=== PATIENT | female | born 1965 ===

== ENCOUNTER 2017-01-12 07:03 | Day surgery (SDC) | payer BC ==
--- NOTE | 2017-01-12 09:25 | CP.SDSHP ---
Same Day Surgery H & P - History Proposed Procedure: colonoscopy Pre-Op Diagnosis: screening for colon cancer - Previous Medical/Surgical History Comments: depression/anxiety - Current Medications Current Medications: see med list - Physical Exam Vital Signs: Vital Signs 01/12/17 08:36 Temperature 97.1 F L Pulse Rate 85 Respiratory 20 Rate Blood Pressure 147/88 O2 Sat by Pulse 99 Oximetry Mental Status: Alert & Oriented x3 Heart: WNL Lungs: WNL GI: WNL - {Optional Preform as Required} Abdomen: WNL - Impression Impression: 51 year old female here for index screening colonoscopy Pt. Evaluated Today:Candidate for Anesthesia & Procedure: Yes - Date & Time Date: 01/12/17 Time: 09:25 Short Stay Discharge - Short Stay Discharge Admitting Diagnosis/Reason for Visit: SCREENING Disposition: HOME/ ROUTINE
[2017-01-12] MEDS ORDERED: Midazolam 2 MG/2 ML VIAL ONE (09:32)
[2017-01-12] MEDS ORDERED: Propofol 10 mg/ml Inj (20 ML) ONE ×2 (09:32→09:47)
[2017-01-12] MEDS ORDERED: Lactated Ringer's 500 ML IV ONE ×2 (09:33)
[2017-01-12 10:43] VITALS: TEMP 97; O2SAT 99
[2017-01-12 10:44] VITALS: RESP 18
[2017-01-12 11:23] VITALS: BP 132/85; PULSE 70
== END 2017-01-12 10:55 | disposition home or self-care (01) ==
LOC: C.ENDO 07:03
PROVIDERS: ATTEND Internal Medicine Gastroenterology
DX: Z12.11 Encounter for screening for malignant neoplasm of colon (principal); K64.8 Other hemorrhoids; Z98.890 Other specified postprocedural states; Z79.899 Other long term (current) drug therapy